=== PATIENT | male | born 1955 | race Caucasian/White ===

== ENCOUNTER → 2020-02-29 15:20 | Outpatient (CLI) | payer SELFPAY ==
[2017-09-10 06:35] VITALS: BMI 31.6
--- NOTE | 2020-02-29 15:32 | RAD_ITS ---
STUDY: X-RAY - LEFT WRIST REASON FOR EXAM: Male, 64 years old. LEFT WRIST PAIN. NKI TECHNIQUE: 3 view(s) of the wrist were obtained. COMPARISON: None. FINDINGS: No acute fracture, dislocation or osseous destruction. No significant joint space narrowing. No significant productive changes. No significant soft tissue swelling. IMPRESSION: No acute fracture or dislocation of the wrist. Electronically Signed: Ananth Carey, at 22:05 EDT Tel , Service support , RAD/Wrist min 3 Views
== END ==
DX: M25.532 Pain in left wrist (principal)
CPT/HCPCS: 73110